=== PATIENT | female | born 1945 | race Caucasian/White ===

== ENCOUNTER 2020-05-08 09:43 | Emergency (ER) | payer MEDICARE, OTHER ==
[2020-05-08] MEDS ORDERED: TYLENOL EXTRA STRENGTH 500 MG ONE (09:53)
[2020-05-08 09:54] VITALS: BP 132/72; PULSE 77; O2SAT 100
[2020-05-08] MEDS ORDERED: XYLOCAINE 1% HCL 20 ML MDV ONE ×2 (09:56→10:14)
--- NOTE | 2020-05-08 10:04 | XRAY ---
Indication: Puncture wound. Comparison: None 2 view right lower leg demonstrates large proximal soft tissue laceration posterior medially. No other bony, articular, or soft tissue abnormalities.
[2020-05-08] MEDS ORDERED: Xylocaine 1% Vial 30 ML PF IJ ONE (10:17)
[2020-05-08] MEDS ORDERED: TYLENOL EXTRA STRENGTH 500 MG PO PRN (10:17)
[2020-05-08] MEDS ORDERED: XYLOCAINE 1% HCL 20 ML MDV IJ ONE (10:23)
--- NOTE | 2020-05-08 10:37 | ERPHSYRPT ---
- History of Present Illness Time Seen by Provider: 05/08/20 09:55 Source: patient Exam Limitations: no limitations Patient Subjective Stated Complaint: pt here for a laceration to right lower leg, she tripped and fell on a stick while cutting wood Triage Nursing Assessment: pt arrived by pov, alert, resp easy, skin w/d/p. has 7.5 x 1 cm lacertion to right lower leg, denies any other injury Physician History: Is a 74-year-old white female who was helping to cut wood when she fell causing a limb or splinter to perforate and lacerated her right leg. The wound is through and through. It is mid leg and medially surface camacho. Other injury Method of Injury: incised Occurred: just prior to arrival Quality: constant, aching, stabbing Severity of Pain-Max: severe Severity of Pain-Current: mild Lower Extremities Pain: knee: right (Through and through laceration of the right leg medial aspect mid leg. Approximately 10 cm in length) Modifying Factors: Improves With: nothing Associated Symptoms: none Allergies/Adverse Reactions: hydrocodone bitartrate [From Vicodin] Allergy (Unknown, Verified 08/13/12 18:06) Home Medications: Prevacid 10 ea DAILY 08/13/12 [History] Alendronate Sodium 70 mg [Fosamax 70 MG] 1 ea DAILY 05/08/20 [History] Aspirin 81 gm Chew [Baby Aspirin 81 mg Chew] 1 ea DAILY 05/08/20 [History] Fenofibrate,Micronized [Fenofibrate] 1 ea DAILY 05/08/20 [History] Lisinopril 10 mg [Zestril 10 MG] 1 ea DAILY 05/08/20 [History] Omeprazole 1 ea DAILY 05/08/20 [History] Hx Tetanus, Diphtheria Vaccination/Date Given: No Hx Influenza Vaccination/Date Given: (unknown) Hx Pneumococcal Vaccination/Date Given: (unknown) Travel Risk - International Travel Have you traveled outside of the country in past 3 weeks: No - Coronavirus Screening Are you exhibiting any of the following symptoms?: No Close contact with a COVID-19 positive Pt in past 14-21 Days: No - Review of Systems Constitutional: No Fever, No Chills Eyes: No Symptoms Ears, Nose, & Throat: No Symptoms Respiratory: No Cough, No Dyspnea Cardiac: No Chest Pain, No Edema, No Syncope Abdominal/Gastrointestinal: No Abdominal Pain, No Nausea, No Vomiting, No Diarrhea Genitourinary Symptoms: No Dysuria Musculoskeletal: No Back Pain, No Neck Pain Skin: No Rash Neurological: No Dizziness, No Focal Weakness, No Sensory Changes Psychological: No Symptoms Endocrine: No Symptoms All Other Systems: Reviewed and Negative - Past Medical History Pertinent Past Medical History: Yes Neurological History: No Pertinent History ENT History: No Pertinent History Cardiac History: Hypertension Respiratory History: No Pertinent History Endocrine Medical History: No Pertinent History Musculoskeletal History: No Pertinent History GI Medical History: No Pertinent History History: No Pertinent History Psycho-Social History: No Pertinent History Female Reproductive Disorders: No Pertinent History Other Medical History: HX HIATAL HERNIA - Past Surgical History Past Surgical History: Yes Neuro Surgical History: No Pertinent History Cardiac: No Pertinent History Respiratory: No Pertinent History Gastrointestinal: No Pertinent History Genitourinary: Other Musculoskeletal: No Pertinent History Female Surgical History: No Pertinent History Other Surgical History: BLADDER REPAIR - Social History Smoking Status: Never smoker Exposure to second hand smoke: No Drug Use: none Patient Lives Alone: No - Female History Hx Last Menstrual Period: podt - Nursing Vital Signs Nursing Vital Signs: Initial Vital Signs Temperature 97.4 F 05/08/20 09:46 Pulse Rate 77 05/08/20 09:46 Respiratory Rate 18 05/08/20 09:46 Blood Pressure 132/72 05/08/20 09:46 O2 Sat by Pulse Oximetry 100 05/08/20 09:46 Pain Scale Pain Intensity 10 - Physical Exam General Appearance: mild distress, alert Eyes, Ears, Nose, Throat Exam: moist mucous membranes Neck Exam: non-tender, supple Cardiovascular/Respiratory Exam: chest non-tender, normal breath sounds, regular rate/rhythm, no respiratory distress Gastrointestinal/Abdominal Exam: non-tender, guarding Back Exam: normal inspection, No vertebral tenderness Legs Exam: right leg: bone tenderness, limited range of motion, pain, soft tissue tenderness, other (Laceration right leg through and through approximately 10 cm total length) DTR - Lower Extremities Exam: knee (R): 2+, knee (L): 2+ Neuro/Tendon Exam: normal sensation, normal motor functions Mental Status Exam: alert, oriented x 3, cooperative Skin Exam: normal color, warm, dry, laceration SpO2 Interpretation: normal SpO2: 100 O2 Delivery: Room Air Procedures - Laceration/Wound Repair Right Medial Calf Time of Procedure: 20:00 Wound Location: Right, lower leg Wound Length (cm): 10 Wound's Depth, Shape: irregular (Wound is irregular on the anterior surface the exit wound is more posterior. Is a through and through laceration.) Wound Explored: no foreign body noted Irrigated: Yes (Copious irrigation to the entire wound) Hibiclens Prep: Yes Anesthesia: 1% Lidocaine (30) Volume Anesthetic (ccs): 0.30 Wound Debrided: minimal Wound Repaired With: sutures Suture Size/Type: 3-0, nylon Number of Sutures: 10 Layer Closure?: Yes Deep Layer Suture Size/Type: 3:0, dexon Number Deep Layer Sutures: 4 Sterile Dressing Applied?: Yes Splint Applied?: No Sling Applied?: No - Course Nursing assessment & vital signs reviewed: Yes - Radiology Exams Lower Leg X-ray Interpretation: Negative, No Fracture Ordered Tests: Active Orders 24 hr Category Date Time Status LOWER LEG Stat Exams 05/08/20 09:45 Completed Medication Summary Generic Name Dose Route Start Last Admin Trade Name Freq PRN Reason Stop Dose Admin Acetaminophen 1,000 mg 05/08/20 10:17 05/08/20 10:21 Tylenol Extra Strength 500 Mg PO 06/07/20 10:16 1,000 mg Q4H PRN PRN Administration HEADACHE Discontinued Medications Generic Name Dose Route Start Last Admin Trade Name Freq PRN Reason Stop Dose Admin Acetaminophen Confirm 05/08/20 09:53 Tylenol Extra Strength 500 Mg Administered 05/08/20 09:54 Dose 1,000 mg .ROUTE .STK-MED ONE Lidocaine HCl Confirm 05/08/20 09:56 Xylocaine 1% Hcl 20 Ml Mdv Administered 05/08/20 09:57 Dose 20 ml .ROUTE .STK-MED ONE Lidocaine HCl Confirm 05/08/20 10:14 Xylocaine 1% Hcl 20 Ml Mdv Administered 05/08/20 10:15 Dose 10 ml .ROUTE .STK-MED ONE Lidocaine HCl 30 ml 05/08/20 10:17 05/08/20 10:22 Xylocaine 1% Vial 30 Ml Pf IJ 05/08/20 10:18 Not Given STAT ONE Lidocaine HCl 10 ml 05/08/20 10:23 05/08/20 10:24 Xylocaine 1% Hcl 20 Ml Mdv IJ 05/08/20 10:24 10 ml STAT ONE Administration - Progress Progress: improved - Departure Departure Disposition: Home Clinical Impression: Laceration of right lower leg Condition: Stable Critical Care Time: No Instructions: Laceration Repair With Stitches (DC), Wound Care (DC) Prescriptions: Cephalexin Mh 500 mg [Keflex 500 mg] 500 mg PO TID #21 capsule
== END 2020-05-08 10:52 | disposition home or self-care (01) ==
LOC: ED 09:43
DX: S81.811A Laceration without foreign body, right lower leg, initial encounter (principal); W01.198A Fall on same level from slipping, tripping and stumbling with subsequent striking against other object, initial encounter
CPT/HCPCS: 12004; 73590; 99284; A9270-GY